=== PATIENT | male | born 1960 | race Caucasian/White ===

== ENCOUNTER 2019-10-16 10:30 | Emergency (ER) | payer SELFPAY ==
[~2019-10-16] VITALS: Ht 180.3 cm; Wt 111.0 kg
[2019-10-16] MEDS ORDERED: PENI500T2 PO (11:54)
[2019-10-16 12:09] VITALS: BP 163/112
== END 2019-10-16 12:12 | disposition home or self-care (01) ==
LOC: ER 10:30
DX: B08.8 Other specified viral infections characterized by skin and mucous membrane lesions (principal); R05 Cough; R50.9 Fever, unspecified; R09.89 Other specified symptoms and signs involving the circulatory and respiratory systems; F17.200 Nicotine dependence, unspecified, uncomplicated; F12.90 Cannabis use, unspecified, uncomplicated; Z79.2 Long term (current) use of antibiotics
CPT/HCPCS: 87081; 87880; 99283